=== PATIENT | female | born 1975 | race Caucasian/White ===

== ENCOUNTER → 2017-08-03 | Day surgery (SDC) | payer OTHER ==
--- NOTE | 2017-08-03 12:46 | OP ---
DATE OF OPERATION: DATE OF DICTATION: 08/03/2017 PREOPERATIVE DIAGNOSIS: Left abnormal mammography. POSTOPERATIVE DIAGNOSIS: Left abnormal mammography. PROCEDURE: Left stereotactic needle biopsy with clip. SURGEON: Brenda Turner MD ANESTHESIA: Local. COMPLICATIONS: None. This was a sterile procedure. INDICATION FOR PROCEDURE: Patient presented with a screening mammogram that noted a density in the inner left breast that would increase in size from . Recommendation for needle biopsy. This was not visible on ultrasound. The procedure was discussed with her, including the need for a clip. PROCEDURE IN DETAIL: Patient brought to [facility], laid prone on the OR table. Using the caudal approach, the density in the inner left breast was identified. A sterile prep obtained. A target was chosen. There was a positive stroke margin. Using Betadine and 1% lidocaine, a 10-gauge Suros device was used to take several cores from . Cores were sent to Pathology in formalin. A clip was deployed in the area. Hemostasis assured with direct pressure and incision was closed with Steri-Strips. She tolerated the procedure well and left the breast imaging center in good condition. BRENDA TURNER M.D. [id number]
--- NOTE | 2017-08-04 15:28 | PATH ---
Surgical Pathology Report Patient Name: XIAO MONROE [facility]. Rec. #: [id number] /Age/Gender: 1975 (Age: 41) / F Account: [id number] Location: [facility] Taken: 08/03/2017 Received: 08/03/2017 Reported: 08/04/2017 Physicians: Brenda Manley M.D. Specimen(s) Received LEFT BREAST MASS STEREOTACTIC BX Clinical History Nonpalpable lesion, left inner density Mammographic findings: Suspicious Final Diagnosis BREAST, LEFT, MASS, STEREOTACTIC BIOPSY: BENIGN BREAST TISSUE SHOWING PROLIFERATIVE FIBROCYSTIC CHANGES INCLUDING CYSTIC APOCRINE METAPLASIA AND USUAL DUCTAL HYPERPLASIA (UDH). Electronically Signed Chio Terry M.D. Gross Description Received in formalin labeled "left breast mass," are 11 curry-yellow, cylindrical portions of fibroadipose tissue ranging from 0.5-3.0 cm in length and averaging 0.3 cm in diameter. The specimens are submitted in toto in 2 cassettes. Time to formalin fixation: 5 minutes Total formalin fixation time: Approximately 8 hours. 08/03/201708/03/2017
== END | disposition home or self-care (01) ==
LOC: FMAMMOTONE 07:21
PROVIDERS: ATTEND Surgery
PROC: 0HBU3ZX Excision of Left Breast, Percutaneous Approach, Diagnostic (ICD-10-PCS; principal; 2017-08-03)
DX: N60.12 Diffuse cystic mastopathy of left breast (principal); N60.82 Other benign mammary dysplasias of left breast; R92.8 Other abnormal and inconclusive findings on diagnostic imaging of breast
CPT/HCPCS: 19081; 88305-TC; A4648